=== PATIENT | female | born 1955 | race Caucasian/White ===

== ENCOUNTER 2018-01-21 10:52 | Inpatient (IN) | payer BC ==
[2018-01-21] MEDS ORDERED: Sodium Chloride 0.9% 5 ML Syringe FLUSH PRN (11:34)
[2018-01-21] MEDS ORDERED: Levofloxacin/Dextrose 5%-Water 500 MG in Premix Bag 1 BAG IV SCH ×2 (11:45→12:30)
[2018-01-21] MEDS ORDERED: Levofloxacin/Dextrose 5%-Water 250 MG in Premix Bag 1 BAG IV SCH ×2 (11:45→13:30)
[2018-01-21] MEDS ORDERED: Ketorolac 10 MG Tab PO PRN (13:38)
[2018-01-21] MEDS ORDERED: Ondansetron 4 MG Tab.DIS PO PRN (13:38)
[2018-01-21] MEDS ORDERED: traMADol 50 MG Tab PO PRN (13:38)
[2018-01-21] MEDS ORDERED: Acetaminophen 500 MG Tab PO PRN (13:38)
[2018-01-21] MEDS ORDERED: Rizatriptan Benzoate [Rizatriptan] 10 MG PO PRN (13:38)
[2018-01-21] MEDS ORDERED: FLUoxetine 20 MG Cap PO SCH (13:45)
[2018-01-21] MEDS: Ketorolac 30 MG/ML SDV IVPUSH PRN ×2 (14:01→21:39)
[2018-01-22 06:53] VITALS: BP 112/66
[2018-01-22 07:59] LABS: CHLORIDE,CL 101 mmol/L (98-115); SODIUM,NA 139 mmol/L (136-145)
[2018-01-22] MEDS ORDERED: FLUoxetine 20 MG Cap PO SCH (09:00)
[2018-01-22] MEDS ORDERED: FLUoxetine 10 MG Cap PO SCH (09:00)
[2018-01-22] MEDS ORDERED: Sodium Chloride 0.9% 50 ML IV SCH (12:30)
--- NOTE | 2018-01-27 10:30 | PCM.HP ---
H&P History of Present Illness - General Date of Service: 01/22/18 Admit Problem/Dx: Admission Diagnosis/Problem Admission Diagnosis/Problem Pneumonia Source of Information: Patient, Old Records, Provider, RN History Limitations: Reports: No Limitations migraine Pain Score (Numeric/FACES): 6 - Related Data Allergies/Adverse Reactions: Allergies Allergy/AdvReac Type Severity Reaction Status Date / Time bupropion HCl Allergy Rash Verified 01/21/18 12:58 [From Wellbutrin] varenicline tartrate Allergy Cannot Verified 01/21/18 12:58 [From Chantix] Remember Home Medications: Home Meds FLUoxetine [PROzac] 20 mg PO DAILY 06/15/14 [History] traMADol [Ultram] 50 mg PO Q6H PRN 05/04/15 [History] Acetaminophen 1,000 mg PO Q6H PRN 02/13/16 [History] Ondansetron [Zofran ODT] 4 mg PO Q6H PRN 01/07/18 [History] Rizatriptan Benzoate [Rizatriptan] 10 mg PO DAILY PRN 01/07/18 [History] Ketorolac Tromethamine 10 mg PO QID PRN 01/21/18 [History] Past Medical History HEENT History: Reports: Allergic Rhinitis Cardiovascular History: Reports: Other (See Below) Other Cardiovascular History: Hypotension Respiratory History: Reports: Bronchitis, Recurrent, COPD, Intubation, Previous , Pneumonia, Recurrent Other Respiratory History: COPD by chest x-ray Gastrointestinal History: Reports: Colon Polyp, GERD, Other (See Below) Other Gastrointestinal History: Hyperplastic colonic polyps in the descending colon and sigmoid region in 2016. Genitourinary History: Reports: None HOST History: Reports: Other OB/BYN History: Full term without complications during or delivery. Surgical menopause. Musculoskeletal History: Reports: Back Pain, Chronic, Fracture, Neck Pain, Chronic, Osteoarthritis, Osteoporosis, Other (See Below) Other Musculoskeletal History: Fracture of digit #5 of the right hand in childhood at about age 10. Right fifth rib fracture in about 2007. TENS unit for chronic right shoulder pain. Neurological History: Reports: Concussion, Headaches, Chronic, Head Trauma, Migraines Other Neuro History: Minor concussion at age 12. s/p head injury and concussion on 06/06/14 when a 200 pound steel beam fell on head with severe scalp laceration. Post concussion syndrome with recurrent headaches and patient followed by a neurologist. Psychiatric History: Reports: Addiction, Anxiety, Depression, Suicidal Ideation , Other (See Below) Other Psychiatric History: Previous history of alcohol abuse as below with additional previous experimentation with multiple illicit drugs. Chronic Ultram use. Endocrine/Metabolic History: Reports: Osteopenia, Osteoporosis Hematologic History: Reports: Anemia, Blood Transfusion(s), Iron Deficiency, Other (See Below) Other Hematologic History: Progressive anemia secondary to head injury with 2 units of packed red blood cells on 06/07/14 Immunologic History: Reports: None Oncologic (Cancer) History: Reports: Cervix, Other (See Below) Other Oncologic History: Pre-cancerous cervical changes requiring hysterectomy and previous cone biopsy as below Dermatologic History: Reports: None - Infectious Disease History Infectious Disease History: Reports: None Other Infectious Disease History: Sepsis of unknown etiology on 01/07/18 with severe secondary hypertension and IV vasopressors required - Past Surgical History Head Surgeries/Procedures: Reports: None HEENT Surgical History: Reports: LASIK, Oral Surgery, Other (See Below) Other HEENT Surgeries/Procedures: [place] teeth extraction 4 in her teenage years. Intentional jaw resetting bilaterally with wire fixation the . Nasal septum deviation repair in her 40s. Left eye LASIK surgery in 2006, Cardiovascular Surgical History: Reports: None Respiratory Surgical History: Reports: None GI Surgical History: Reports: Colonoscopy, Polypectomy, Other (See Below) Other GI Surgeries/Procedures: Last colonoscopy with polypectomy 2 on 02/14/16 with previous colonoscopy in 2011 Female Surgical History: Reports: Cervical Conization, Hysterectomy, Other ( See Below) Other Female Surgeries/Procedures: Cervical coning and hysterectomy in the secondary to precancerous cervical region as above Endocrine Surgical History: Reports: None Neurological Surgical History: Reports: None Musculoskeletal Surgical History: Reports: Arthroscopic Procedure, Carpal Tunnel , Shoulder Surgery, Other (See Below) Other Musculoskeletal Surgeries/Procedures:: Carpal tunnel release in 2005. Arthroscopic right knee surgery in 2003. Right rotator cuff repair in 2008. Oncologic Surgical History: Reports: None Dermatological Surgical History: Reports: None - Past Imaging History Past Imaging History: Reports: CAT Scan (CT of the head on 11/25/14 in 06/06/14) , Mammogram (Last mammogram in 2015), MRI (MRI of the brain on 01/10/[address] [facility] with results not available) Social & Family History - Family History Family Medical History: Noncontributory HEENT: Reports: None Cardiac: Reports: Aneurysm, Hypertension, Other (See Below) Other Cardiac Family History: Maternal uncle with hypertension. Maternal uncle with possible fatal cerebral aneurysm in his 60s as below. Respiratory: Reports: None GI: Reports: None : Reports: None OBGYN: Reports: None Musculoskeletal: Reports: None Neurological: Reports: Alzheimers Disease, Cerebral Aneurysms, CVA, Dementia, Other (See Below) Other Neurological Family History: Hemorrhagic CVAs secondary to possible aneurysm in maternal uncle fatal in his 60s. Maternal aunt with dementia. Psychiatric: Reports: None Endocrine/Metabolic: Reports: None Hematologic: Reports: None Immunologic: Reports: None Dermatologic: Reports: None Oncologic: Reports: Colon, Other (See Below) Other Oncologic Family History: Mother with colon cancer at age 70 - Tobacco Use Smoking Status *Q: Current Every Day Smoker Years of Tobacco use: 47 Packs/Tins Daily: 1 Used Tobacco, but Quit: No Second Hand Smoke Exposure: No - Caffeine Use Caffeine Use: Reports: Coffee - Recreational Drug Use Recreational Drug Use: No - Living Situation & Occupation Living situation: Reports: (1 child), with Family () Occupation: Employed ([employer]) H&P Review of Systems - Review of Systems: Review Of Systems: See Below General: Reports: No Symptoms HEENT: Reports: No Symptoms Pulmonary: Reports: No Symptoms Cardiovascular: Reports: No Symptoms Gastrointestinal: Reports: No Symptoms Genitourinary: Reports: No Symptoms Musculoskeletal: Reports: No Symptoms Skin: Reports: No Symptoms Psychiatric: Reports: No Symptoms Neurological: Reports: No Symptoms Hematologic/Lymphatic: Reports: No Symptoms Immunologic: Reports: No Symptoms Exam - Exam Exam: See Below - Vital Signs Vital Signs: Last Vital Signs Temp 98.0 F 01/22/18 06:52 Pulse 71 01/22/18 06:52 Resp 20 01/22/18 06:52 BP 112/66 01/22/18 06:52 Pulse Ox 93 L 01/22/18 06:52 Weight: 127 lb 12.8 oz - Exam Quality Assessment: No: Supplemental Oxygen General: Alert, Oriented, Cooperative. No: Mild Distress HEENT: EOMI Neck: Supple, Trachea Midline, 2 Lungs: Clear to Auscultation, Normal Respiratory Effort Cardiovascular: Regular Rate, Regular Rhythm GI/Abdominal Exam: Normal Bowel Sounds, Soft, Non-Tender, No Organomegaly, No Distention, No Abnormal Bruit, No Mass, Pelvis Stable (Female) Exam: Deferred Back Exam: No: CVA Tenderness (L), CVA Tenderness (R) Extremities: No: Pedal Edema Peripheral Pulses: 2+: Radial (L), Radial (R) Skin: Warm, Dry, Intact Neurological: Cranial Nerves Intact, Reflexes Equal Bilateral Neuro Extensive - Mental Status: Alert, Oriented x3, Normal Mood/Affect, Normal Cognition Neuro Extensive - Motor, Sensory, Reflexes: CN II-XII Intact, Normal Gait, Normal Reflexes Psychiatric: Alert, Normal Affect, Normal Mood - Patient Data Result Diagrams: 01/22/18 07:00 01/22/18 07:00 Problem List Initiated/Reviewed/Updated: Yes Assessment/Plan Comment:: Please use this history and physical and discharge summary in combine document as patient was discharged same day I seen patient. SUMMARY OF PRESENT ILLNESS 62-year-old female was admitted to the hospital due to symptomatic pleural effusion, elevated d-dimer thought to be possibility of a PE on with some right- sided thoracic reproducible chest wall pain on inspiration. ANC has a recent significant medical history somewhat nebulous in her differential diagnosis however most notable recent history of septic shock unknown etiology requiring hospitalization, pressor therapy, and resuscitative measures. Subsequent fluid resuscitation was noted for her to have acute BNP elevation >800 normalizing after diuresis. A recent chest x-ray did show per her to have a right pleural effusion. Patient does suffer from migraine headaches which she states have been prompted ever since of beam fell on her head at work in 2013. Echocardiogram January 2018 shows no LV dysfunction with normal EF however up to moderate mitral regurg. Chest CT, January 2018, no PE, small right pleural effusion, atelectasis and possible infiltrate right lung base, inflammatory changes, some nodularity on noncalcified right middle lobe with bilateral apical fibrotic changes Hospital course, Terse, patient requested discharge the following morning. She was ambulating the halls without any cough or shortness of breath and no edema or chest pain. She was aggressive on her incentive spirometer, CBC with normal white count, no neutrophilia however 12.5 % favorable monophilia, electrolytes were normal, she was afebrile with good MAP and no signs and symptoms of septic shock. I reviewed her hematologic indices with her ferritin 202 likely fully compensating for any acute phase of inflammation especially in the light of recent septic shock and ongoing elevated inflammatory markers. H&H now normal, slightly macrocytic, no anisocytosis and although circulating iron is low likely fluctuating dietary and not a good indicator of CURT--no need for iron at this time. However I do not see patient yet submitted stool for occult, and patient states she was to have an upper EGD/colonoscopy at some point. I assessed a pro-calcitonin level this was normal so no antibiotics were given to her upon discharge. Final diagnosis Possible pneumonia likely viral in etiology Pleural effusion, resolving Atelectasis, Pulmonary nodularity, repeat CT in 2 months. Thrombocytosis, reactive History of anemia, Disposition, discharge patient from hospital, aggressive use of incentive spirometer with close follow-up, repeat CT in 2 months. She is to report any fevers, cough, shortness of breath or any edema. Recommendation for follow-up include assess the need for colonoscopy/EGD. She will follow-up with [facility] myself or [facility].
== END 2018-01-22 11:00 | disposition home or self-care (01) | DRG 143 ==
LOC: KA.MS 12:11
PROVIDERS: ADMIT Physician Assistant Medical; ATTEND Nurse Practitioner Family
DX: J90 Pleural effusion, not elsewhere classified (principal); F17.210 Nicotine dependence, cigarettes, uncomplicated; K21.9 Gastro-esophageal reflux disease without esophagitis; J44.9 Chronic obstructive pulmonary disease, unspecified; R51 Headache; I10 Essential (primary) hypertension; Z79.899 Other long term (current) drug therapy; Z88.8 Allergy status to other drugs, medicaments and biological substances; Z87.19 Personal history of other diseases of the digestive system; Z87.820 Personal history of traumatic brain injury; Z86.19 Personal history of other infectious and parasitic diseases
CPT/HCPCS: 36415; 80048; 81001; 84145; 85025; A9270-GY; J1885; J1956; J7050